=== PATIENT | female | born 1965 | race African-American/Black ===

== ENCOUNTER 2021-02-18 13:51 | Emergency (ER) | payer BC ==
[~2021-02-18] VITALS: Ht 177.8 cm; Wt 79.4 kg
[2021-02-18 16:35] VITALS: BP 136/52
== END 2021-02-18 16:37 | disposition home or self-care (01) ==
LOC: ER 16:07
DX: J40 Bronchitis, not specified as acute or chronic (principal); R05 Cough; J02.9 Acute pharyngitis, unspecified; Z20.822 Contact with and (suspected) exposure to COVID-19; Z88.0 Allergy status to penicillin
CPT/HCPCS: 99282